=== PATIENT | female | born 1970 | race Caucasian/White ===

== ENCOUNTER 2017-12-04 08:47 | Day surgery (SDC) | payer BC, OTHER ==
[2017-12-03 15:02] VITALS: BMI 22.6
--- NOTE | 2017-12-04 09:29 | HP ---
History & Physical Update - History History: No Change - Physical Physical: No Change - Assessment Assessment: No Change - Plan Plan: No Change
[2017-12-04] MEDS ORDERED: oxyCODONE HCL 5 MG TABLET PO PRN (11:27)
[2017-12-04] MEDS ORDERED: ONDANSETRON 4 MG/2 ML VIAL IVPUSH PRN (11:27)
[2017-12-04] MEDS ORDERED: LACTATED RINGERS SOLUTION 1,000 ML IV SCH (11:30)
[2017-12-04] MEDS ORDERED: MIDAZOLAM HCL 2 MG/2 ML SINGLE DOSE VIAL ONE (12:14)
[2017-12-04] MEDS ORDERED: ceFAZolin SODIUM 1 GM VIAL IVPB ONE (12:20)
[2017-12-04] MEDS ORDERED: ceFAZolin SODIUM 1 GM VIAL ONE (12:20)
[2017-12-04] MEDS ORDERED: LIDOCAINE HCL 1%, 10 MG/ML (50 mL VIAL) IJ ONE (12:22)
--- NOTE | 2017-12-04 12:50 | HP ---
Admitting History and Physical - Admission Chief Complaint: lt breast atypia History of Present Illness: s/p L 3:00 n1 core biopsy- path atypia History Source: Patient Limitations to Obtaining History: No Limitations - Smoking History Smoking history: Never smoked - Alcohol/Substance Use Hx Alcohol Use: No Home Medications - Allergies Allergies/Adverse Reactions: Allergies Allergy/AdvReac Type Severity Reaction Status Date / Time Sulfa (Sulfonamide Allergy Intermediate Itching Verified 12/03/17 14:57 Antibiotics) - Home Medications Home Medications: Ambulatory Orders Acetaminophen W/ Codeine #3 [Tylenol # 3 -] 1 - 2 tab PO Q6H PRN #10 tablet MDD 6 pills 12/04/17 Family Disease History - Family Disease History Family History: Denies Review of Systems Unable to obtain ROS, reason: unremarkable Physical Examination Vital Signs: Vital Signs Temperature 98.4 F 12/04/17 09:14 Pulse Rate 72 12/04/17 09:14 Respiratory Rate 20 12/04/17 09:14 Blood Pressure 116/79 12/04/17 09:14 O2 Sat by Pulse Oximetry (%) 100 12/04/17 09:15 Constitutional: Yes: Well Nourished Eyes: Yes: WNL HENT: Yes: WNL Neck: Yes: WNL Cardiovascular: Yes: WNL Respiratory: Yes: WNL Breast(s): Yes: WNL Extremities: Yes: WNL Assessment/Plan Lt breast atypia plan- L breast wire loc lumpectomy
[2017-12-04 14:33] VITALS: TEMP 98.2
[2017-12-04 15:57] VITALS: BP 114/79; PULSE 78
--- NOTE | 2017-12-05 06:27 | OP ---
DATE OF OPERATION: 12/04/2017 PREOPERATIVE DIAGNOSIS: Left breast atypia. POSTOPERATIVE DIAGNOSIS: Left breast atypia. PROCEDURE: Left breast wire-localized lumpectomy. SURGEON: Livia Lopes MD ANESTHESIA: Local and IV sedation. ESTIMATED BLOOD LOSS: Minimal. COMPLICATIONS: None. This was a sterile procedure. INDICATIONS FOR PROCEDURE: Patient presented with a screening with a mammogram that noted mammogram and ultrasound. The ultrasound noted a nodule in the left 3 o'clock location 1 cm from the nipple. I did a needle biopsy that showed atypia. My recommendation was an excision to make sure there is no further upgrade in the lesion. The procedure was discussed with all the questions answered. PROCEDURE IN DETAIL: Patient was brought to [facility] in [place], taken to radiology where wire was used to localize the clip in the outer left breast and then, brought to the operating room, and after IV sedation and IV antibiotics, the left breast was prepped and draped in the usual sterile fashion. The outer retroareolar left breast was anesthetized with 1% lidocaine without epinephrine. The periareolar incision was made in the outer left breast, and a wire was used as a guide to get down to the area of interest. This was excised en bloc and tacked with long suture lateral, short sutures superior, sent for specimen radiograph. Hemostasis was assured with electrocautery. The parenchyma was approximated with interrupted 2-0 Vicryl. Skin approximated with interrupted 3-0 Vicryl and running 4-0 Prolene. A sterile dressing with Tegaderm and 4x4s was applied. She tolerated the procedure well. Specimen radiograph showed the clip and wire to be intact within the specimen. This was sent to Pathology for permanent section. She was then taken to recovery in good condition. LIVIA LOPES M.D. [id number]
[2017-12-06 06:37] LABS: HBsAG SCREEN Negative (Negative); HEP B CORE AB, TOT Negative (Negative)
--- NOTE | 2017-12-11 09:49 | PATH ---
Surgical Pathology Report Patient Name: KENDELL HANKINS [facility]. Rec. #: [id number] /Age/Gender: 1970 (Age: 47) / F Account: [id number] Location: [facility] SURGICAL Taken: 12/04/2017 Received: 12/04/2017 Reported: 12/11/2017 Physicians: Livia Mckinney M.D. Specimen(s) Received LEFT BREAST LUMPECTOMY Clinical History Left breast atypia Final Diagnosis LEFT REAST, LUMPECTOMY: DUCTAL CARCINOMA IN SITU (DCIS), LOW NUCLEAR GRADE, WITH PAPILLARY AND CRIBRIFORM TYPES. DCIS IS PRESENT IN TWO OF EIGHT SLIDES. THE EXTENT OF DCIS IS APPROXIMATE 8 MM IN GREATEST DIMENSION. MARGINS ARE UNINVOLVED BY DCIS. DCIS TO THE CLOSEST MARGIN (SUPERIOR) IS LESS THAN 1 MM. REMAINDER OF THE BREAST TISSUE SHOW ATYPICAL DUCTAL HYPERPLASIA, DILATED DUCTS, APOCRINE METAPLASIA, AND STROMAL FIBROSIS. PRIOR BIOPSY SITE WITH REACTIVE CHANGES. PATHOLOGIC STAGE (pTNM): pTis pNx SEE CARCINOMA CASE SUMMARY BELOW. Interdepartmental case reviewed with consensus on diagnosis. This case was discussed with Dr. Mckinney on Dec 11, 2017 Comments DCIS of the Breast: Surgical Pathology Cancer Case Summary (Based on AJCC TNM 8 th edition) Procedure _x_ Excision (less than total mastectomy) Specimen Laterality _x_ Left Size (Extent) of DCIS Estimated size (extent) of DCIS (greatest dimension using gross and microscopic evaluation): at least (millimeters): 8 mm (the approximate thickness of a block is 4mm, multiplying the number of blocks involved by DCIS) Number of blocks with DCIS: 2 Number of blocks examined: 8 Histologic Type _x_ Ductal carcinoma in situ Architectural Patterns _x_ Cribriform _x_ Papillary Nuclear Grade _x_ Grade I (low) Necrosis _x_ Not identified Margins _x_ Uninvolved by DCIS Distance from closest margin (millimeters): <1 mm Specify closest margin: superior margin Regional Lymph Nodes _x_ No lymph nodes submitted or found Pathologic Stage Classification (pTNM, AJCC 8th Edition) Primary Tumor (pT) _x__ pTis (DCIS): Ductal carcinoma in situ Microcalcifications Identified in non-neoplastic breast tissue Biomarker Studies Results of ER and ID studies performed on this specimen (block# 4) at [facility] are as follows: ER (clone [id number] mouse monoclonal antibody by [employer]): >90% nuclear staining with strong intensity (Positive). ID (clone16 mouse monoclonal antibody by [employer]): >90% nuclear staining with strong intensity (Positive). Positive and negative controls (internal if applicable) show appropriate results. Formalin fixation and cold ischemic times are within current ASCO/CAP recommendations for ER, ID and Her2 testing. Electronically Signed Lyudmila Wong M.D. Gross Description Received fresh on an AccuGrid, labeled "left breast lumpectomy," is a 4.3 x 3.6 x 1.2 cm. ayala-yellow, irregular, portion of fibroadipose tissue with a needle localization wire present. There is a short suture marking the superior aspect and a long suture marking the lateral aspect, per the surgeon. There is no skin or nipple present. The specimen is inked as follows: superior and lateral blue; inferior green; medial yellow; anterior red; deep black. The specimen is serially sectioned from lateral to medial. Sectioning reveals diffuse dense white fibrous tissue. No definitive mass is identified. The specimen is entirely and sequentially submitted in 8 cassettes with the lateral margin in cassette 1 and the medial margin in cassette 8. Time to formalin fixation: 48 minutes Total formalin fixation time: Approximately 29 hours. 12/04/2017 [facility]
== END 2017-12-04 16:05 | disposition home or self-care (01) ==
LOC: JASU-SURG 08:47
PROVIDERS: ATTEND Surgery
PROC: 0HBU0ZZ Excision of Left Breast, Open Approach (ICD-10-PCS; principal; 2017-12-04 12:00)
DX: N60.89 Other benign mammary dysplasias of unspecified breast (principal)
CPT/HCPCS: 19281; 36415; 84703; 86317; 86704; 86803; 87340; 87389; 88307-TC; 88342-TC; 94760

== ENCOUNTER 2018-07-09 07:51 | Day surgery (SDC) | payer BC, OTHER ==
[2018-07-08 12:06] VITALS: BMI 22.2
[2018-07-09] MEDS ORDERED: LIDOCAINE HCL 1%, 10 MG/ML (20ML VIAL) ONE (09:06)
[2018-07-09] MEDS ORDERED: LIDOCAINE HCL 1%, 10 MG/ML (20ML VIAL) NR ONE ×2 (09:07→09:45)
[2018-07-09] MEDS ORDERED: MIDAZOLAM HCL 2 MG/2 ML SINGLE DOSE VIAL ONE (09:19)
[2018-07-09] MEDS ORDERED: ceFAZolin SODIUM 1 GM VIAL ONE (09:41)
[2018-07-09] MEDS ORDERED: DEXAMETHASONE SOD PHOSPHATE 4 MG/1 ML VIAL ONE (09:45)
[2018-07-09] MEDS ORDERED: KETOROLAC TROMETHAMINE 30 MG/1 ML VIAL ONE (10:12)
[2018-07-09] MEDS ORDERED: ONDANSETRON 4 MG/2 ML VIAL IVPUSH PRN (10:27)
[2018-07-09] MEDS ORDERED: oxyCODONE HCL 5 MG TABLET PO PRN (10:27)
[2018-07-09] MEDS ORDERED: LACTATED RINGERS SOLUTION 1,000 ML IV SCH (10:30)
--- NOTE | 2018-07-09 12:10 | OP ---
DATE OF OPERATION: 07/09/2018 PREOPERATIVE DIAGNOSIS: Left breast ductal carcinoma in situ. POSTOPERATIVE DIAGNOSIS: Left breast ductal carcinoma in situ. PROCEDURE: Left breast re-excision lumpectomy. SURGEON: Livia Lopes MD ANESTHESIA: General. ESTIMATED BLOOD LOSS: Minimal. COMPLICATIONS: None. This was a sterile procedure. INDICATION FOR PROCEDURE: Patient had a stereotactic biopsy that showed atypical ductal hyperplasia. I did a lumpectomy in November that showed a low-grade DCIS with a close superior margin. My recommendation was re-excision. The procedure was discussed with her. Because of several different reasons, she was unable to get this procedure done until now. The patient now presents for the re-excision lumpectomy. All the questions answered. PROCEDURE IN DETAIL: The patient was brought to [facility] in [place] and taken into the operating room. After induction of general anesthesia and IV antibiotics, the left breast was prepped and draped in the usual sterile fashion. The area in the upper outer left breast was anesthetized with 1% lidocaine without epinephrine. The prior incision in the periareolar outer left breast was sharply re-opened, and a complete re-excision lumpectomy was performed. This was tagged with a long stitch lateral, short stitch superior and sent to Pathology for permanent section. I took an additional new superior margin with a stitch at the old margin. This was also sent to Pathology for permanent section in formalin. Hemostasis was assured with electrocautery. The parenchyma was approximated with interrupted 2-0 Vicryl, skin approximated with interrupted 3-0 Vicryl and running 4-0 Prolene. The sterile dressing with Tegaderm and 4x4 was applied. She tolerated the procedure well. Was extubated on the operating room table, taken to recovery in good condition. LIVIA LOPES M.D. [id number]
[2018-07-09 12:14] VITALS: TEMP 97.7
[2018-07-09 13:43] VITALS: BP 101/63; PULSE 75
--- NOTE | 2018-07-14 15:15 | PATH ---
Surgical Pathology Report Patient Name: KENDELL HANKINS [facility]. Rec. #: [id number] /Age/Gender: 1970 (Age: 47) / F Account: [id number] Location: [facility] SURGICAL Taken: 07/09/2018 Received: 07/09/2018 Reported: 07/14/2018 Physicians: Livia Mckinney M.D. Specimen(s) Received A: LEFT BREAST RE- EXCISION LUMPECTOMY B: LEFT BREAST NEW SUPERIOR MARGIN Clinical History DCIS Final Diagnosis A. BREAST, LEFT, RE- EXCISION LUMPECTOMY: BENIGN BREAST PARENCHYMA WITH FIBROCYSTIC CHANGES INCLUDING STROMAL FIBROSIS, MICROCYSTS, APOCRINE METAPLASIA, FOCAL COLUMNAR CELL CHANGE, FLORID USUAL DUCTAL HYPERPLASIA, AND ASSOCIATED MICROCALCIFICATIONS. CHANGES OF PRIOR BIOPSY IDENTIFIED. B. BREAST, LEFT, NEW SUPERIOR MARGIN: DUCTAL CARCINOMA IN SITU (DCIS), CRIBRIFORM TYPE, LOW NUCLEAR GRADE, PRESENT IN ONE OF THREE SLIDES (1/3). DCIS MEASURES 1.5 MM IN GREATEST MICROSCOPIC DIMENSION. DCIS FOCALLY INVOLVES NEW SURGICAL MARGIN. Electronically Signed Penelope Simpson M.D. Gross Description A. Received fresh on an AccuGrid, labeled "left breast reexcision lumpectomy" is a 4.5 x 4 x 2.5 cm. ayala-yellow, irregular, portion of fibroadipose tissue. There is a short suture marking the superior aspect and a long suture marking the lateral aspect, per the surgeon. There is no skin or nipple present. The specimen is inked as follows: superior and lateral-blue; inferior-green; medial-yellow; anterior-red; deep-black. The specimen is serially sectioned from superior to inferior. Sectioning reveals fibrofatty parenchyma with focal areas of hemorrhage. The entire specimen is submitted in 9 cassettes (focal area of hemorrhage in cassettes: 1-3). Total formalin fixation time: Approximately 8 hours B. Received in formalin labeled "left breast new superior margin," is a 3 x 3 x 1.5 cm portion of fibroadipose tissue with a suture marking the biopsy cavity side, per the surgeon. The new margin is inked blue and the specimen is serially sectioned. Cut section is grossly unremarkable. The specimen is entirely and sequentially submitted in 3 cassettes. MLSZ/07/09/2018 sanml/07/09/2018
== END 2018-07-09 13:46 | disposition home or self-care (01) ==
LOC: JASU-SURG 07:51
PROVIDERS: ATTEND Surgery
PROC: 0HBU0ZZ Excision of Left Breast, Open Approach (ICD-10-PCS; principal; 2018-07-09 09:00)
DX: D05.92 Unspecified type of carcinoma in situ of left breast (principal)
CPT/HCPCS: 84703; 88307-TC; 94760

== ENCOUNTER 2018-08-02 09:41 | Day surgery (SDC) | payer BC, OTHER | END 2018-08-02 15:47 | disposition home or self-care (01) | LOC: JASU-SURG 09:41 ==